=== PATIENT | male | born 1975 | race Caucasian/White ===

== ENCOUNTER 2018-02-15 11:50 | Emergency (ER) | payer MEDICARE, OTHER ==
[~2018-02-15] VITALS: Ht 165.1 cm; Wt 74.8 kg
--- NOTE | 2018-02-15 11:56 | NUR ---
PT BBRA FROM HOME FOR HEAMTURIA SINCE YESTERDAY AND GENERALZIED WEAKNESS SINCE THIS AM AFTER CATHETERIRIZING HIMSELF. PT HAS A HISTORY OF SPINAL CORD INJURY, NEUROGENIC BLADDER, REASON HE HAS TO CATHETERIZE HIMSELF. PT APPEARS ANXIOUS. NAD VSS RR EVEN AND UNLABORED. PENDING ER MD EVALUATION
[2018-02-15] MEDS ORDERED: LORAZEPAM 1 MG TABLET ONE (12:15)
[2018-02-15] MEDS ORDERED: LORAZEPAM 1 MG TABLET PO ONE (12:30)
--- NOTE | 2018-02-15 12:49 | NUR ---
BLADDER IRRIGATION STARTED. PT IN NAD. WILL MONITOR.
[2018-02-15 13:00] LABS: BASOPHILS % (AUTO) 0.3 % (0.0-2.0); EOSINOPHILS % (AUTO) 2.8 % (0.0-6.0); HEMATOCRIT 44 % (39-51); HEMOGLOBIN 15.8 g/dL (13.5-17.5); LYMPHOCYTES # (AUTO) 1.7 /CMM (0.8-4.8); LYMPHOCYTES % (AUTO) 25.8 % (20.0-44.0); MEAN CORPUSCULAR HGB CONC 36 g/dl (31.0-36.0); MEAN CORPUSCULAR VOLUME 87 fL (80-96); MONOCYTES # (AUTO) 0.4 /CMM (0.1-1.30); MONOCYTES % (AUTO) 6.1 % (2.0-12.0); NEUTROPHILS # (AUTO) 4.4 /CMM (1.8-8.9); PLATELET COUNT (AUTO) 196 /CMM (150-450); RDW COEFFICIENT OF VARIATION 11.8 (11.5-15.0); RED BLOOD CELL COUNT(AUTO) 5.01 MIL/uL (4.5-6.0); WHITE BLOOD COUNT (AUTO) 6.7 K/uL (4.3-11.0)
[2018-02-15 13:06] LABS: INR 0.92 (0.85-1.15)
[2018-02-15 13:07] LABS: CALCIUM, SERUM 8.8 mg/dL (8.5-10.1); CREATININE 1.2 mg/dL (0.6-1.3); POTASSIUM 4.4 mmol/L (3.5-5.1)
[2018-02-15 13:25] LABS: APPEARANCE,URINE Turbid (CLEAR); BILIRUBIN,URINE LARGE (NEGATIVE); BLOOD, URINE Large Ery/uL (NEGATIVE); COLOR,URINE Red (YELLOW); KETONES,URINE 15 (NEGATIVE); LEUKOCYTE ESTERASE ,URINE Large (NEGATIVE); NITRITE, URINE Negative (NEGATIVE); PROTEIN,URINE >=300 mg/dl (NEGATIVE); UGLUCOSE 100 MG/DL mg/dL (NEGATIVE)
[2018-02-15 13:31] LABS: RBC,URINE TOO NUMEROUS TO COUN /HPF (0-2)
[2018-02-15 13:32] LABS: BACTERIA,URINE Rare /HPF (None Seen); SQUAMOUS EPITHELIAL CELL,UR Few /HPF (None Seen)
--- NOTE | 2018-02-15 14:00 | NUR ---
[address] SHIPLEY CATHETER DISCONTINUED ORDERED BY ARIELLE CHRISTIANSON
--- NOTE | 2018-02-15 14:10 | NUR ---
SHIPLEY CATHETER FR 18 INSERTED LEG BAG APPLIED PT TOLERATED PROCEDURE.
--- NOTE | 2018-02-15 14:23 | NUR ---
Patient discharged to home in stable condition. Written and verbal after care instructions given. Patient verbalizes understanding of instruction.
[2018-02-15 14:24] VITALS: BP 109/78
== END 2018-02-15 14:25 | disposition home or self-care (01) ==
LOC: ER 11:53
DX: R31.0 Gross hematuria (principal); F41.9 Anxiety disorder, unspecified
CPT/HCPCS: 36415; 80048-TC; 81000-TC; 85025-TC; 85610-TC; 87086-TC; A4217; A4606; Z7610